=== PATIENT | female | born 1960 | race Caucasian/White ===

== ENCOUNTER → 2021-11-22 09:42 | Outpatient (BNVA) | payer BC, SELFPAY | PROVIDERS: PCP Family Medicine; Visit Provider Psychiatry & Neurology Neurology ==

== ENCOUNTER 2022-06-11 15:10 | Outpatient (REF) | payer BC, SELFPAY ==
[2022-06-11 15:30] LABS: MANUAL DIFF FLAG NO
[2022-06-11 15:58] LABS: Basophils Percent Auto 0.6 % (0-2); Eosinophils Absolute Auto 0.1 X10*3/uL (0.0-0.4); Eosinophils Percent Auto 1.7 % (0-4); Hematocrit 44.8 % (37.0-47.0); Hemoglobin 15.2 g/dl (12.0-16.0); Imm Gran Abs Auto 0.01 X10*3/uL (0.00-0.03); Imm Gran Pct Auto 0.2 % (0.0-0.4); Lymphocytes Percent Auto 45.3 % (20-40); Mean Corpuscular HGB Conc 33.9 g/dl (31.0-35.0); Mean Corpuscular Hemoglobin 31.7 pg (27.0-33.0); Mean Corpuscular Volume 93.5 fL (80.0-98.0); Mean Platelet Volume 9.3 fL (9.4-12.3); Monocytes Absolute Auto 0.5 X10*3/uL (0.1-1.2); Monocytes Percent Auto 7.1 % (2-11); Neutrophils Percent Auto 45.1 % (45-73); Platelet Count 216 X10*3/uL (160-400); Red Blood Count 4.79 X10*6/uL (4.20-5.50); Red Cell Distribution Width 13.1 % (11.0-16.0); White Blood Count 6.6 X10*3/uL (4.8-10.8)
[2022-06-11 16:25] LABS: Alanine Aminotransferase 26 U/L (0-31); Albumin Level 4.4 g/dL (3.5-5.0); Alkaline Phosphatase 116 U/L (39-117); Anion Gap 15 (12-20); Aspartate Amino Transferase 21 U/L (5-31); Bilirubin Direct 0.2 mg/dL (0.0-0.5); Bilirubin Total 0.4 mg/dL (0.0-1.0); Blood Urea Nitrogen 19 mg/dL (9-16); Calcium 9.5 mg/dL (8.4-10.2); Carbon Dioxide 22 mmol/L (22-29); Chloride 107 mmol/L (96-108); Estimated Glomerular Filt Rate 54; Glucose Random 105 mg/dL (60-115); Potassium 4.5 mmol/L (3.3-5.1); Sodium 139 mmol/L (135-145); Total Protein 7.1 g/dL (6.5-8.0)
[2022-06-11 16:55] LABS: Folate 6.4 ng/mL (> or = 4.0); Vitamin B12 240 pg/mL (200-900)
== END 2022-06-11 15:11 | disposition home or self-care (01) ==
LOC: HO.LAB 15:10
PROVIDERS: PCP Family Medicine; Visit Provider Psychiatry & Neurology Neurology
DX: F09 Unspecified mental disorder due to known physiological condition (principal); G40.909 Epilepsy, unspecified, not intractable, without status epilepticus; G43.909 Migraine, unspecified, not intractable, without status migrainosus; Q85.1 Tuberous sclerosis; R42 Dizziness and giddiness; E03.9 Hypothyroidism, unspecified
CPT/HCPCS: 36415; 80048; 80076; 82306; 82607; 82746; 84443; 85025

== ENCOUNTER → 2022-09-19 09:00 | Outpatient (BNVA) | payer MEDICAID, SELFPAY | PROVIDERS: PCP Family Medicine; Visit Provider Psychiatry & Neurology Neurology | DX: G43.909 Migraine, unspecified, not intractable, without status migrainosus (principal); G40.909 Epilepsy, unspecified, not intractable, without status epilepticus; R42 Dizziness and giddiness; Q85.1 Tuberous sclerosis; Z79.899 Other long term (current) drug therapy | CPT/HCPCS: 99212 ==

== ENCOUNTER → 2023-03-20 15:17 | Outpatient (BNVA) | payer OTHER, SELFPAY | PROVIDERS: PCP Family Medicine; Visit Provider Nurse Practitioner Family | DX: G40.909 Epilepsy, unspecified, not intractable, without status epilepticus (principal); G43.909 Migraine, unspecified, not intractable, without status migrainosus; R42 Dizziness and giddiness; Q85.1 Tuberous sclerosis | CPT/HCPCS: 99212 ==

== ENCOUNTER 2023-05-27 13:29 | Outpatient (AMB) | payer OTHER, SELFPAY ==
--- NOTE | 2023-05-27 13:35 | MHC.OFFVIS ---
Intake Vital Signs 05/27/23 13:37 Weight 244 lb 2 oz BP 130/76 Blood Pressure Location Lt brachial Position Sitting Pulse Source Pulse Oximeter Pulse Oximetry (%) 96 Oxygen Delivery Method Room Air Intake Visit Reasons: FOLLOW UP-confirmed Intake Note: Pt presents today in fup , states her seizures are more under control. Pt states meds make her sleepy and she takes naps qd . Migraines are an issue, happens alot . Pt had a vertgo episode on 05/10 Allergies clotrimazole Allergy (Unknown, Verified 05/27/23 13:41) Unknown nystatin Allergy (Unknown, Verified 05/27/23 13:41) Unknown beclomethasone [From Qvar] Allergy (Verified 05/27/23 13:41) Headache flovent Allergy (Unknown, Uncoded 09/19/22 09:06) Unknown percocet Allergy (Unknown, Uncoded 09/19/22 09:06) Unknown Medication List - Last Reconciled 05/27/23 by Radha Ware MD acetaminophen (Pain Relief Extra Strength (acetaminophen)) 500 mg PO Q6H PRN albuterol sulfate mg inhalation Q4H PRN ascorbate calcium (vitamin C) 1 g PO Q6H atorvastatin 20 mg PO DAILY qeffxkxrob-glnbnmntnvjuv-qckg 50-325-40 mg 0 tabs PO cholecalciferol (vitamin D3) 50 mcg PO DAILY clonazepam 0.5 mg PO BEDTIME 30 days diphenhydramine HCl (Banophen) 25 mg PO BEDTIME docusate sodium 100 mg PO BID fluocinolone 0.025% appl topical BID galcanezumab-gnlm (Emgality Pen) 120 mg subcut .q monthly lamotrigine 150 PO 5 tabsa day; lorazepam 0.5 mg PO TID PRN meclizine 12.5 mg PO DIRECTED methocarbamol 500 mg PO BEDTIME omeprazole 20 mg PO DAILY oxcarbazepine 300 mg PO QID prazosin 1 mg PO BEDTIME scopolamine base 1 patch topical Q3D PRN topiramate 600 mg (6 x 100 mg) PO .qd HPI HPI Comments History of Present Illness Details 62 y/o female presents for follow up of migraines, epilepsy, vertigo and anxiety. She has been taking Ativan 0.5 mg bid to tid as needed she started with anew therapist for her mood. she takes 30 min nap in the afternoon Seizures are well controlled. No side effects from medications Migraines are less frequent with monthly Emgality. she is due for emgality today and has been having more migraines recently . She lost her clonazepam ( she had people cleaning her house and not sure how she lost it) she ran out of clonazepam 2 weeks ago and since then her migraines have increased .she is unable to sleep.she was started on prazosin 1mg but she is not tolerating. Pt usually takes a nap, takes ativan, uses ice pack to manage her migraine. Vertigo was stable after rehab. she ahd 1 episode last month but she was under a lot stress- she took meclizine and lorazepam which resolved. She is more careful to change her position and sleeps on her left side, it helped to recurrent vertigo. [facility] Medical History Anxiety Cognitive disorder Epilepsy Migraine Thyroid activity decreased Tuberous sclerosis Vertigo Surgical History History of back surgery History of surgery Hx of appendectomy Hx of cataract surgery Family History Father Heart disease Diabetes mellitus Mother Tuberous sclerosis Social History Household Members: Family Alcohol intake: former Patient Tobacco Use Status: Former Tobacco user Physical Exam Vital Signs: Last Vital Signs BP 130/76 05/27/23 13:37 Pulse Ox 96 05/27/23 13:37 Oxygen Delivery Method Room Air 05/27/23 13:37 Const General: cooperative, healthy appearing, comfortable and no acute distress Nutritional Appearance: average body habitus Orientation/consciousness: patient oriented x3 Neuro General: patient oriented x3 and moves all extremities Assessment & Plan Assessment & Plan (1) Epilepsy: Code(s): G40.909 - Epilepsy, unspecified, not intractable, without status epilepticus (2) Migraine: Code(s): G43.909 - Migraine, unspecified, not intractable, without status migrainosus (3) Vertigo: Code(s): R42 - Dizziness and giddiness (4) 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 Lorazepam 0.5mg tid as needed. She may use clonazepam 0.5 mg qHS for anxiety. Emgality 120mg monthly as patient has good clinical effect to reduce migraine frequency and intensity. She may use Tylenol and Imitrex 100mg as needed. Orders: Orders Complete Blood Count Auto Diff Today G40.909 - Epilepsy, unspecified, not intractable, without status epilepticus, G43.909 - Migraine, unspecified, not intractable, without status migrainosus, Q85.1 - Tuberous sclerosis, R42 - Dizziness and giddiness Comprehensive Met. Panel Today G40.909 - Epilepsy, unspecified, not intractable, without status epilepticus, G43.909 - Migraine, unspecified, not intractable, without status migrainosus, Q85.1 - Tuberous sclerosis, R42 - Dizziness and giddiness Medications: Refilled clonazepam administer 30 minutes before bedtime 0.5 mg PO BEDTIME 30 days 30 tabs 0RF galcanezumab-gnlm (Emgality Pen) 120 mg subcut .q monthly 1 mL 6RF Coding Level of Care Code Est Pt Level 4 (25402) Diagnoses Epilepsy G40.909 Migraine G43.909 Vertigo R42 Tuberous sclerosis Q85.1
[2023-05-27 13:37] VITALS: BP 130/76; O2SAT 96
== END 2023-05-27 14:13 | disposition home or self-care (01) ==
PROVIDERS: PCP Family Medicine; Visit Provider Psychiatry & Neurology Neurology
DX: G40.909 Epilepsy, unspecified, not intractable, without status epilepticus (principal); G43.909 Migraine, unspecified, not intractable, without status migrainosus; R42 Dizziness and giddiness; Q85.1 Tuberous sclerosis
CPT/HCPCS: 99214

== ENCOUNTER → 2023-05-27 13:29 | Outpatient (BNVA) | payer OTHER, SELFPAY | PROVIDERS: PCP Family Medicine; Visit Provider Psychiatry & Neurology Neurology ==

== ENCOUNTER 2023-09-19 08:58 | Outpatient (AMB) | payer OTHER, SELFPAY ==
--- NOTE | 2023-09-19 09:07 | A.OFFVIS_ITS ---
Intake Vital Signs 09/19/23 09:12 Height 5 ft 10 in Weight 242 lb BMI 34.7 BP 138/96 H Blood Pressure Location Rt brachial Position Sitting Respiration 16 Pulse 72 Pulse Source Pulse Oximeter Pulse Oximetry (%) 97 Oxygen Delivery Method Room Air Intake Visit Reasons: FOLLOW UP - Conf at CW Intake Note: Pt presents to office for follow up for epilepsy. Air Brake Rigger Required: No Allergies clotrimazole Allergy (Unknown, Verified 09/19/23 09:10) Unknown nystatin Allergy (Unknown, Verified 09/19/23 09:10) Unknown beclomethasone [From Qvar] Allergy (Verified 09/19/23 09:10) Headache flovent Allergy (Unknown, Uncoded 09/19/23 09:10) Unknown percocet Allergy (Unknown, Uncoded 09/19/23 09:10) Unknown HPI HPI Comments History of Present Illness Details 62 y/o female presents for follow up of migraines, epilepsy, vertigo and anxiety. She has been taking Ativan 0.5 mg bid to tid as needed she has clonazepam 0.5 mg 1/2 tab qod she talks a therapist every other week she takes 30 min nap in the afternoon Seizures are well controlled. No side effects from medications Migraines are less frequent with monthly Emgality. Pt usually takes a nap, takes ativan, uses ice pack to manage her migraine. Vertigo was stable after rehab. she had 1 episode last month but she was under a lot stress- she took meclizine and lorazepam which resolved. She is more careful to change her position and sleeps on her left side, it helped to recurrent vertigo. she had fall when she rolled out of bed. no loss of consciousness.SHe had headaches for a few days and is better now. [facility] Medical History Thyroid activity decreased Cognitive disorder Anxiety Vertigo Migraine Epilepsy Tuberous sclerosis Surgical History Hx of cataract surgery History of surgery Hx of appendectomy History of back surgery Family History Father Heart disease Diabetes mellitus Mother Tuberous sclerosis Social History Household Members: Family Alcohol intake: former Patient Tobacco Use Status: Former Tobacco user Physical Exam Vital Signs: Last Vital Signs Pulse 72 09/19/23 09:12 Resp 16 09/19/23 09:12 BP 138/96 H 09/19/23 09:12 Pulse Ox 97 09/19/23 09:12 Oxygen Delivery Method Room Air 09/19/23 09:12 BMI result Body Mass Index 34.7 Const General: cooperative, healthy appearing, comfortable and no acute distress Nutritional Appearance: average body habitus Orientation/consciousness: patient oriented x3 Neuro General: patient oriented x3 and moves all extremities Cranial nerves: Yes Facial sensation intact/muscles of mastication intact, Yes Bilaterally intact EOM present, Yes Nystagmus not present, Yes Normal facial strength present, Yes Midline tongue present and Yes Symmetric palate elevation present Cognition (Neuro): normal cognition Gait exam (Neuro): Normal gait present Assessment & Plan Assessment & Plan (1) Epilepsy: Code(s): G40.909 - Epilepsy, unspecified, not intractable, without status epilepticus (2) Migraine: Code(s): G43.909 - Migraine, unspecified, not intractable, without status migrainosus (3) Vertigo: Code(s): R42 - Dizziness and giddiness (4) 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 Lorazepam 0.5mg tid as needed. She may use clonazepam 0.5 mg qHS for anxiety. Emgality 120mg monthly as patient has good clinical effect to reduce migraine frequency and intensity. She may use Tylenol and Imitrex 100mg as needed. Coding Level of Care Code Est Pt Level 4 (60551) Diagnoses Epilepsy G40.909 Migraine G43.909 Vertigo R42 Tuberous sclerosis Q85.1
[2023-09-19 09:12] VITALS: BP 138/96; PULSE 72; RESP 16; O2SAT 97; BMI 34.7
== END 2023-09-19 09:46 | disposition home or self-care (01) ==
PROVIDERS: PCP Family Medicine; Visit Provider Psychiatry & Neurology Neurology
DX: G40.909 Epilepsy, unspecified, not intractable, without status epilepticus (principal); G43.909 Migraine, unspecified, not intractable, without status migrainosus; R42 Dizziness and giddiness; Q85.1 Tuberous sclerosis
CPT/HCPCS: 99214

== ENCOUNTER → 2023-09-19 08:58 | Outpatient (BNVA) | payer OTHER, SELFPAY | PROVIDERS: PCP Family Medicine; Visit Provider Psychiatry & Neurology Neurology | DX: G43.909 Migraine, unspecified, not intractable, without status migrainosus (principal); G40.909 Epilepsy, unspecified, not intractable, without status epilepticus; Q85.1 Tuberous sclerosis; R42 Dizziness and giddiness ==

== ENCOUNTER 2024-01-21 10:10 | Outpatient (AMB) | payer OTHER, SELFPAY ==
--- NOTE | 2024-01-21 10:16 | MHC.OFFVIS ---
Intake Vital Signs 01/21/24 10:17 Height 5 ft 10 in Weight 240 lb BMI 34.4 BP 128/76 Blood Pressure Location Rt brachial Position Sitting Respiration 16 Pulse 85 Pulse Source Pulse Oximeter Pulse Oximetry (%) 96 Oxygen Delivery Method Room Air Intake Visit Reasons: Follow up-CONF Intake Note: Pt presents to the office for a 4 month follow up for epilepsy. Blowing Engineer Required: No Allergies clotrimazole Allergy (Unknown, Verified 01/21/24 10:16) Unknown nystatin Allergy (Unknown, Verified 01/21/24 10:16) Unknown beclomethasone [From Qvar] Allergy (Verified 01/21/24 10:16) Headache flovent Allergy (Unknown, Uncoded 01/21/24 10:16) Unknown percocet Allergy (Unknown, Uncoded 01/21/24 10:16) Unknown Medication List - Last Reconciled 01/21/24 by Radha Ware MD acetaminophen (Pain Relief Extra Strength (acetaminophen)) 500 mg PO Q6H PRN albuterol sulfate mg inhalation Q4H PRN ascorbate calcium (vitamin C) 1 g PO Q6H atorvastatin 20 mg PO DAILY xwqsmfjwsq-wutdcxfkihomi-vzib 50-325-40 mg 0 tabs PO cholecalciferol (vitamin D3) 50 mcg PO DAILY clonazepam 0.5 mg PO BEDTIME 30 days dextromethorphan polistirex ER (Delsym 12 hour) 10 mL PO Q12H jmlemhgdh-N[place]-mhhbwzfywbwar 12.5-5-325 mg/10 mL (Child Mucinex M-S Cold Night) mL PO diphenhydramine HCl (Banophen) 25 mg PO BEDTIME docusate sodium 100 mg PO BID fluocinolone 0.025% appl topical BID galcanezumab-gnlm (Emgality Pen) 120 mg subcut ONCE 30 days lamotrigine 150 PO 5 tabsa day; lorazepam 0.5 mg PO TID PRN meclizine 12.5 mg PO DIRECTED methocarbamol 500 mg PO BEDTIME mometasone-formoterol 50-5 mcg/actuation (Dulera) 2 inhalations inhalation BID omeprazole 20 mg PO DAILY oxcarbazepine 300 mg PO QID prazosin 1 mg PO BEDTIME scopolamine base 1 patch topical Q3D PRN topiramate 600 mg (6 x 100 mg) PO .qd HPI HPI Comments History of Present Illness Details 63 y/o female presents for follow up of migraines, epilepsy, vertigo and anxiety. She has been taking Ativan 0.5 mg bid to tid as needed she has clonazepam 0.5 mg 1/2 tab qod she talks a therapist every other week she takes 30 min nap in the afternoon Seizures are well controlled. No side effects from medications Migraines are less frequent with monthly Emgality. she has 2 migraine days before her emgality dose. Pt usually takes a nap, takes ativan, uses ice pack to manage her migraine. Vertigo was stable after rehab. she had 1 episode this week . She is more careful to change her position and sleeps on her left side, it helped to recurrent vertigo. she takes meclizine as needed. Her anxiety is worse due to stress. [facility] Medical History Thyroid activity decreased Cognitive disorder Anxiety Vertigo Migraine Epilepsy Tuberous sclerosis Surgical History Hx of cataract surgery History of surgery Hx of appendectomy History of back surgery Family History Father Heart disease Diabetes mellitus Mother Tuberous sclerosis Social History Household Members: Family Alcohol intake: former Patient Tobacco Use Status: Former Tobacco user Physical Exam Vital Signs: Last Vital Signs Pulse 85 01/21/24 10:17 Resp 16 01/21/24 10:17 BP 128/76 01/21/24 10:17 Pulse Ox 96 01/21/24 10:17 Oxygen Delivery Method Room Air 01/21/24 10:17 BMI result Body Mass Index 34.4 Const General: cooperative, healthy appearing, comfortable and no acute distress Nutritional Appearance: average body habitus Orientation/consciousness: patient oriented x3 Neuro General: patient oriented x3 and moves all extremities Cranial nerves: Yes Facial sensation intact/muscles of mastication intact, Yes Bilaterally intact EOM present, Yes Nystagmus not present, Yes Normal facial strength present, Yes Midline tongue present and Yes Symmetric palate elevation present Cognition (Neuro): normal cognition Gait exam (Neuro): Normal gait present Assessment & Plan Assessment & Plan (1) Epilepsy: Code(s): G40.909 - Epilepsy, unspecified, not intractable, without status epilepticus (2) Migraine: Code(s): G43.909 - Migraine, unspecified, not intractable, without status migrainosus (3) Vertigo: Code(s): R42 - Dizziness and giddiness (4) 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 Lorazepam 0.5mg tid as needed. She may use clonazepam 0.5 mg qHS for anxiety. Emgality 120mg monthly as patient has good clinical effect to reduce migraine frequency and intensity. She may use Tylenol and Imitrex 100mg as needed. Coding Level of Care Code Est Pt Level 4 (43596) Diagnoses Epilepsy G40.909 Migraine G43.909 Vertigo R42 Tuberous sclerosis Q85.1
[2024-01-21 10:17] VITALS: BP 128/76; PULSE 85; RESP 16; O2SAT 96; BMI 34.4
== END 2024-01-21 10:45 | disposition home or self-care (01) ==
PROVIDERS: PCP Family Medicine; Visit Provider Psychiatry & Neurology Neurology
DX: G40.909 Epilepsy, unspecified, not intractable, without status epilepticus (principal); G43.909 Migraine, unspecified, not intractable, without status migrainosus; R42 Dizziness and giddiness; Q85.1 Tuberous sclerosis
CPT/HCPCS: 99214

== ENCOUNTER → 2024-01-21 10:10 | Outpatient (BNVA) | payer OTHER, SELFPAY | PROVIDERS: PCP Family Medicine; Visit Provider Psychiatry & Neurology Neurology ==

== ENCOUNTER 2024-07-19 10:49 | Outpatient (REF) | payer OTHER, SELFPAY ==
[2024-07-19 13:22] LABS: MANUAL DIFF FLAG NO
[2024-07-19 13:27] LABS: Basophils Absolute Auto 0.1 X10*3/uL (0.0-0.2); Basophils Percent Auto 0.7 % (0-2); Eosinophils Absolute Auto 0.1 X10*3/uL (0.0-0.4); Eosinophils Percent Auto 1.2 % (0-4); Hematocrit 47.4 % (37.0-47.0); Hemoglobin 15.7 g/dl (12.0-16.0); Imm Gran Abs Auto 0.02 X10*3/uL (0.00-0.03); Imm Gran Pct Auto 0.3 % (0.0-0.4); Lymphocytes Absolute Auto 2.6 X10*3/uL (1.2-4.9); Mean Corpuscular HGB Conc 33.1 g/dl (31.0-35.0); Mean Corpuscular Hemoglobin 31.8 pg (27.0-33.0); Mean Corpuscular Volume 96.1 fL (80.0-98.0); Monocytes Absolute Auto 0.4 X10*3/uL (0.1-1.2); Monocytes Percent Auto 5.8 % (2-11); Neutrophils Absolute Auto 3.8 x10*3/uL (2.0-8.3); Platelet Count 231 X10*3/uL (160-400); Red Blood Count 4.93 X10*6/uL (4.20-5.50); Red Cell Distribution Width 13.1 % (11.0-16.0)
[2024-07-19 13:56] LABS: Alanine Aminotransferase 21 U/L (0-31); Albumin Level 4.2 g/dL (3.5-5.0); Alkaline Phosphatase 96 U/L (39-117); Anion Gap 7 (12-20); Aspartate Amino Transferase 19 U/L (5-31); Bilirubin Total 0.3 mg/dL (0.0-1.0); Blood Urea Nitrogen 22 mg/dL (9-16); Calcium 10.3 mg/dL (8.4-10.2); Carbon Dioxide 27 mmol/L (22-29); Chloride 112 mmol/L (96-108); Estimated Glomerular Filt Rate 47; Glucose Random 101 mg/dL (60-115); Potassium 4.7 mmol/L (3.3-5.1); Sodium 141 mmol/L (135-145); Total Protein 7.2 g/dL (6.5-8.0)
[2024-07-19 14:24] LABS: Vitamin B12 832 pg/mL (200-900)
[2024-07-19 14:50] LABS: Folate 4.2 ng/mL (> or = 4.0)
== END 2024-07-19 10:50 | disposition home or self-care (01) ==
LOC: HO.10HDL 10:49
PROVIDERS: Visit Provider Psychiatry & Neurology Neurology
DX: F09 Unspecified mental disorder due to known physiological condition (principal); Q85.1 Tuberous sclerosis; G40.909 Epilepsy, unspecified, not intractable, without status epilepticus
CPT/HCPCS: 36415; 80053; 82607; 82746; 85025

== ENCOUNTER 2024-07-22 09:49 | Outpatient (AMB) | payer OTHER, SELFPAY ==
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
[2024-07-22 09:53] VITALS: BP 122/80; PULSE 79; O2SAT 95; BMI 34.2
== END 2024-07-22 10:29 | disposition home or self-care (01) ==
PROVIDERS: PCP Family Medicine; Visit Provider Psychiatry & Neurology Neurology
DX: G40.409 Other generalized epilepsy and epileptic syndromes, not intractable, without status epilepticus (principal); G43.909 Migraine, unspecified, not intractable, without status migrainosus; R42 Dizziness and giddiness; Q85.1 Tuberous sclerosis
CPT/HCPCS: 99214; G2211

== ENCOUNTER → 2024-07-22 09:49 | Outpatient (BNVA) | payer OTHER, SELFPAY | PROVIDERS: PCP Family Medicine; Visit Provider Psychiatry & Neurology Neurology ==

== ENCOUNTER 2025-06-01 07:42 | Outpatient (AMB) | payer MEDICAID, SELFPAY ==
--- OUTSIDE RECORDS SUMMARY | 2025-06-01 07:45 | XMS_ITS ---
Author Name [facility] Organization Unknown Care Team Organization Name Specialty Phone Email Start Date End Da tucker [facility] 08/20/2022 4
--- OUTSIDE RECORDS SUMMARY | 2025-06-01 07:45 | XMS_ITS | Encounter Summary ---
Author Organization [facility] Address [address] [facility] [address] [place] [phone] Phone Care Team Providers Care Civil Preparedness Coordinator Name Role Phone Cady Jamison MD Primary Care Provider [phone] Encounter Details Date Type Department Care Team (Late st Contact Info) Description 01/20/2025 Ophth Exam [facility] Emergency Department [address] [place] [address] Isiah Saleh MD, PhD [address] [place] [address] [email or web address] Social History Tobacco Use Types Packs/Day Years Used Date Smoking Tobacco: Former Cigarettes Q uit: 10/13/1989 Smokeless Tobacco: Never Comments:Stopped smoking whe n I was 26 Alcohol Use Standard Drinks/Week Comments No 0 (1 standard drink = 0.6 oz pur e alcohol) Child or Family Care Answer Date Record ed Do you have problems with on e of the following making it difficult for you to work, study, or receive health care? No 03/15/2024 Education Answer Date Recorded Are you interested in help w ith more adult education (for example, completing high school, GED, job training, learning the Romansh language, technical skills, or developing parenting skills)? No 03/15/2024 Are you concerned about learning? Not on file 03/15/2024 No 03/15/2024 Yes 03/15/2024 Food Answer Date Recorded Within the past 6 months we worried whether our food would run out before we got money to buy more. Never True 01/20/2025 Within the past 6 months the food we bought just didn't last and we didn't have enough money to get more. Never True Residential Stability Answer Date Recor ded What is your housing situation today? I have katie sing 01/20/2025 How many times have you move d in the past 12 months? Zero (I did not move) 01/20/2025 Paying for Meds Answer Date Recorded Do you have trouble paying for medicines? No 01/20/2025 Paying Utility Bills Answer Date Record ed Do you have trouble paying your heating or elect ricity bill? No 01/20/2025 Transportation Answer Date Recorded Has the lack of transportati on kept you from medical appointments or from getting medications? No 01/20/2025 Unemployment Answer Date Recorded Are you currently unemployed or working on a part-time or temporary basis, and looking for work? I choose not to answer 01/06/2023 Digital Access Answer Date Recorded No 01/20/2025 Yes 01/20/2025 Do you have reliable internet access at home? Ye s 01/20/2025 Do you have a device (e.g., phone, tablet, computer) with a working camera? Yes 01/20/2025 SNAP & WIC Answer Date Recorded Do you receive benefits from SNAP (the Supplemental Nutrition Assistance Program) or the Food Stamp Program? Yes 03/15/2024 SNAP is a free program, interested in learning m ore? Not on file 03/15/2024 Can we help you enroll in SNAP? Not on file 03/15/2024 Benefits received from WIC? Not on file 12/2023 WIC is a free program, interested in learning mo re? Not on file 03/15/2024 Can we help you enroll in WIC? Not on file 0 03/15/2024 Intimate Partner Violence Answer Date R ecorded Are you denied basic needs s uch as food, clothing, or medical care? No 01/20/2025 In the past 12 months have y ou been in a relationship with a person who hurts, threatens, or tries to control you? No 01/20/2025 Are you denied basic needs s uch as food, clothing, or medical care? No 01/20/2025 In the past 12 months have y ou been in a relationship with a person who hurts, threatens, or tries to control you? No 01/20/2025 Comments No Sex and Gender Information Value Date Recorded Sex Assigned at Female 04/03/2023 1:17 PM EDT Legal Sex Female 9:46 PM EDT Gender Identity Female 04/03/2023 1:17 PM EDT Sexual Orientation Straight 01/20/2025 2: 39 PM EDT Occupation Industry Job Start Date Job End Date family [employer] Not on file Not on file Not on file documented as of this encounter Functional Status * Calculated C-SSRS Risk Score (Lifetime/Recent) Answer Date of Assessment Author No Risk Indicated 01/20/2025 2:26 PM EDT Keith Morris, LOYDA * [place] Suicide Severity Rating Scale (Screener/Recent Self-Report) Question Answer Date of Assessment Author 1. Wish to be (Past 1 Month) No 025 2:26 PM EDT Keith Morris, LOYDA 2. Non-Specific Active Suici pierre Thoughts (Past 1 Month) No 01/20/2025 2:26 PM EDT Koko Morris, RN 6. Suicidal Behavior (Lifetime) No 2:26 PM EDT Keith Morris, RN documented as of this encounter Plan of Treatment Upcoming Encounters Date Type Department Care Team (Late st Contact Info) Description 06/02/2025 9:00 AM EDT Office Visit [facility] [place] [facility] [address] [place] [address] Cady Jamison MD 15 [facility] [address] [place] [address] 07/04/2025 9:00 AM EDT Nutrition [facility] Nutrition Services [address] [place] [address] Cady Jamison MD 15 [facility] [place] [address] [email or web address] Zeina Mcgovern LDN [address] [place] [phone] [email or web address] 12/22/2025 1:00 PM EDT Office Visit [facility] Medical Dermatology [address], [address] [place] [address] Juan A Hernandes MD, MPH [address] [place] [address] [email or web address] 01/17/2026 3:00 PM EDT Office Visit [facility] G[facility] Associates [address] [facility] 5th [place] [address] Edgar Arias MD [address] [address] [email or web address] 03/14/2026 2:45 PM EDT Office Visit [facility] COMPREHENSIVE OPHTHALMOLOGY [facility] [address] [place] [phone] Esdras Jurado MD [address] [place] [address] [email or web address] 03/27/2026 10:30 AM EDT Appointment [facility] Imaging - Ultrasound, [facility] [address] [place] [address] Lokesh Britton MD, FACS [address] [facility] [place] [address] [email or web address] 03/27/2026 11:30 AM EDT Office Visit [facility] Otolaryngology [facility] [address] [address] Lokesh Britton MD, FACS [address] [facility] [place] [address] [email or web address] 06/28/2026 10:00 AM EDT Office Visit [facility] [place] [facility] [address] [place] [address] Cady Jamison MD 15 [facility] [place]. [address] [place] [address] 11/15/2026 11:00 AM EST Telemedicine [facility] [address] [facility], 5th [place] [address] Gabriel Landrum, PhD [address] [place], [place] [id number] [place] [address] [email or web address] documented as of this encounter Visit Diagnoses Not on filedocumented in this encounter Additional Health Concerns Infection Onset Date Last Indicated Resolved Time COVID-19 05/07/2025 05/07/2025 05/28/2025 1:21 AM EDT Assessment Noted Time PHQ-9 Depression Total Score: 11 024 5:48 PM EST PHQ-2 Depression Total Score: 3 09/15/20 24 5:48 PM EST documented as of this encounter Care Teams Civil Preparedness Coordinator Relationship Specialty Start Date End Date Cady Jamison MD [address] [facility] [place] [address] PCP - General Family Medicine 08/26/21 documented as of this encounter Additional Source Comments The information contained in this document represents components of the legal health record. It is not the complete legal health record.[facility]
--- OUTSIDE RECORDS SUMMARY | 2025-06-01 07:45 | XMS_ITS | Clinical Summary ---
Author Organization [facility] Address [address] [place] [address] Care Team Providers Care Chip Mixing Machine Operator Name Role Phone Cady Jamison MD Primary Care Provider Allergies Active Allergy Reactions Criticality Noted Date Comments Amoxicillin 07/05/2016 Causes yeast infection Budesonide-Formoterol 03/09/2019 Throat closure feeling, swollen face and palpitations Clotrimazole Anaphylaxis High 07/15/200805/20 Codeine 12/20/2024 Fluticasone Propionate 10/02/2010 Other Reaction(s): OTHER closed the airway ? Patient points to sinus region as to where she felt congested. She then tolerated Advair House Dust 09/17/2016 Norgestimate-Ethinyl Estradiol 12/20/2024 Nystatin Anaphylaxis High 07/15/2008 Oxycodone-Acetaminophen 09/17/2016 headaches Potato 08/24/2021 Cough Prednisolone 02/02/2019 Other Reaction(s): Hives/Urticaria Spoke with patient, day 2 or 3 medication developed hive like rash which lasted a couple of days, was given with another medication at the same time. Terconazole 08/05/2019 Medications atorvastatin (LIPITOR) 20 mg tablet Take 1 tablet (20 mg total) by mouth 1 (one) time each day. 2 Active scopolamine (TRANSDERM-SCOP) 1 mg over 3 days patch [address] 1 Patch onto the skin every 72 hours as needed (dizziness/vert igo). 1 Active pramoxine-hydroc ortisone cream Apply 1 applicator topically 3 (three) times a day. 1 Active albuterol HFA (ProAir HFA) 90 mcg/actuation inhaler Inhale 2 Puffs into the lungs every 4 hours as needed for Cough or Wheezing. 0 Active galcanezumab-gnl m (Emgality Pen) 120 mg/mL injection pen Inject 1 mL (120 mg total) under the skin every 30 (thirty) days. 0 Active albuterol 2.5 mg /3 mL (0.083 %) nebulizer solution Inhale 3 mL (2.5 mg total) by mouth every 4 (four) hours if needed for wheezing. 0 Active hydrocortisone-p ramoxine (Analpram-HC) 2.5-1% rectal cream Use as directed. 9 Active EPINEPHrine (EpiPen 2-Jose) 0.3 mg/0.3 mL injection Inject 1 Device as directed as needed (anaphylaxis). Use as directed 9 Active erenumab-aooe (Aimovig Autoinjector) 70 mg/mL injection Inject under the skin. Active meclizine (ANTIVERT) 12.5 mg tablet Take 1 tablet (12.5 mg total) by mouth 3 (three) times a day if needed. 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 Active CARON, ZINGIBER OFFICINALIS, ORAL Take 1 tablet by mouth 1 (one) time each day. Active estradioL (ESTRACE) 0.01 % (0.1 mg/gram) vaginal cream One half applicator vaginally twice daily until symptoms resolve, then one half applicator to make 7 total days. Repeat as needed 8 Active ASCORBIC ACID, VITAMIN C, ORAL Take by mouth. Active benzonatate (TESSALON) 100 mg capsule Take 1 capsule (100 mg total) by mouth 3 (three) times a day if needed. Active CYANOCOBALAMIN, VITAMIN B-12, ORAL Take 1 tablet by mouth 3 (three) times a day. Active LORazepam (ATIVAN) 0.5 mg tablet Take 1 tablet (0.5 mg total) by mouth 2 (two) times a day if needed for anxiety. 6 Active diphenhydramine HCl (BENADRYL ALLERGY ORAL) Take by mouth. A ctive lamoTRIgine (LaMICtal) 150 mg tablet 1 tablet TID, 2 at bedtime Active topiramate (TOPAMAX) 100 mg tablet 1 1/2 BID 2 at dinner and 1 at HS Active OXcarbazepine (TRILEPTAL) 300 mg tablet 1 tablet 4 times a day Active loratadine (CLARITIN ORAL) 1 po prn Acti ve CHOLECALCIFEROL, VITAMIN D3, ORAL Take 1 tablet by mouth 1 (one) time each day. Active ammonium lactate (AMLACTIN) 12 % cream Apply topically 2 times daily. 5 02/09/20 26 Active methocarbamoL (ROBAXIN) 500 mg tablet Take 1 tablet (500 mg total) by mouth 3 times daily as needed. 5 Active ciclopirox (LOPROX) 0.77 % cream Apply topically daily. 5 Active sod wzkhc-saxnzn-etq eez bottle (Neilmed Sinus Rinse Complete) packet with rinse device Administer 1 packet into affected nostril(s) once daily as needed. 5 Active topiramate (TOPAMAX) 100 mg tablet Take by mouth 1 (one) time each day. 4 Active LORazepam (ATIVAN) 0.5 mg tablet Take 1 tablet (0.5 mg total) by mouth. 4 Active lamoTRIgine (LaMICtal) 150 mg tablet Take by mouth. 4 Active omeprazole OTC (PriLOSEC OTC) 20 mg EC tablet 1 tablet (20 mg total) daily. Active butalbital-aceta minophen-caffein e (FIORICET, ESGIC) 50-325-40 mg per tablet butalbital-acet aminophen-caffe ine 50 mg-325 mg-40 mg tablet Active clotrimazole-bet amethasone (LOTRISONE) 1-0.05 % cream Apply topically 2 (two) times a day. Active galcanezumab-gnl m (Emgality Syringe) 120 mg/mL syringe Inject under the skin. Active ibuprofen (ADVIL,MOTRIN) 600 mg tablet Take by mouth. A ctive sulfamethoxazole -trimethoprim (BACTRIM DS,SEPTRA DS) 800-160 mg per tablet Take 1 tablet by mouth 2 (two) times a day. Active multivitamin tablet Take 1 tablet by mouth 1 (one) time each day. Active metroNIDAZOLE (NORITRATE) 1 % cream Apply topically 1 (one) time each day. Active diclofenac (VOLTAREN) 75 mg EC tablet Take 1 tablet (75 mg total) by mouth 2 (two) times a day. Do not crush, chew, or split. Active atorvastatin (LIPITOR) 20 mg tablet Take 1 tablet (20 mg total) by mouth at bedtime. Active ondansetron (ZOFRAN) 4 mg tablet Take 1 tablet (4 mg total) by mouth every 8 (eight) hours if needed for nausea or vomiting. Active omeprazole (PriLOSEC) [address] capsuleIndicatio ns:Chronic cough,Gastroesop hageal reflux disease with esophagitis without hemorrhage Take 1 capsule (20 mg total) by mouth 2 (two) times a day. 180 each 3 5 03/23/20 26 Active Active Problems Problem Noted Date Diagnosed Date Irritable bowel syndrome with constipation 03/23 Hoarseness 05/25/2019 Perennial allergic rhinitis 05/25/2019 Vertigo 08/04/2018 Chronic kidney disease, stage 3 ([facility] V24, [facility] V28) 10/23/2016 Cataract 09/10/2016 Prediabetes 09/10/2016 Hyperlipidemia 08/07/2014 Multinodular goiter 08/05/2013 Overview (11/24/2024): FNA Benign 08/25 Obesity 12/02/2011 Seizure ([facility] V24, [facility] V28) 07/16/2011 Anemia 07/03/2011 Asthma 09/28/2010 Fracture of left ankle 08/09/2010 Overview (11/24/2024): 05/22 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 [place] [address] Juan Antonio Vargas PA Chronic cough (Primary Dx); Gastroesophageal reflux disease with esophagitis without hemorrhage; Hyperplastic polyp of stomach from Last 3 Months Immunizations Name Administration Dates Next Due Influenza trivalent, with pr eservative (Fluzone; Afluria) 6mo and older 07/26/2015,07/19/2014 Pneumococcal polysaccharide 23 valent (Pneumovax 23) 2yo and older 07/19/2014 Tdap Tetanus diptheria acell ular pertussis (Boostrix; Adacel) 7yo and older 07/26/2015 Zoster Live 11/23/2017 Surgical History Surgery Date Site/Laterality Comments OTHER SURGICAL HISTORY 08/13/2006 PROCEDURE: PAP SMEAR (1 SLIDE); COMMENT: Cy; clayton COLONOSCOPY 02/06/2010 PROCEDURE: [place] COLONOSCOPY STOMA DX INCLUDING COLLJ SPEC SPX; COMMENT: Gianfranco; neg; R 10 Y ESOPHAGOGASTRODUODENOSCOPY 07/20/2010 PROCEDURE: [place] EGD TRANSORAL BIOPSY SINGLE/MULTIPLE; COMMENT: Gianfranco; esophagitis, no celiac OTHER SURGICAL HISTORY 05/04/2021 N/A PROCEDURE: [place] ENTEROLSS FRING INTSTINAL ADHESION SPX OTHER SURGICAL HISTORY 05/04/2021 PROCEDURE: [place] LAPAROSCOPIC APPENDECTOMY COLONOSCOPY 04/12/2020 - 05/12/2020 int rhoids (10 yr) ESOPHAGOGASTRODUODENOSCOPY 10/13/2024 - 11/12/2024 [facility] -2 superficial esophageal ulcers at GE junction, 11 mm sessile polyp in gastric fundus biopsied, patchy inflammation in gastric antrum, erythematous duodenopathy Medical History Medical History Date Comments 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, [facility]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); COMMENT: Jeanie; Seizures Fracture of left ankle 08/09/2010 DX:Fractu re of left ankle Asthma 09/28/2010 DX:Asthma Anemia 07/03/2011 DX:Anemia Seizure ([facility]24, [facility] V28) 07/16/2011 DX:Seizure ([facility]) Obesity 12/02/2011 DX:Obesity Chronic kidney disease, stag e 3 ([facility], [facility] V28) 10/23/2016 DX:Chronic kidney disease, stage 3 (HCC) Family History Medical History Relation Name Comments Other: Cancer, stomach Aunt 1 mat; Gr A Anemia Aunt 2 mat Diabetes Father Heart attack Father Heart failure Father Heart failure Paternal Grandfather Thyroid disease Paternal Grandmother Goit er Other cancer Sister Rhabdomyosarcom a Relation Name Status Comments Aunt 1 Aunt 2 Father Paternal Grandfather Paternal Grandmother Sister Social History Tobacco Use Types Packs/Day Years Used Date Smoking Tobacco: Former Cigarettes Q uit: 10/13/1988 Smokeless Tobacco: Never Alcohol Use Standard Drinks/Week Comments No 0 (1 standard drink = 0.6 oz pur e alcohol) Comments Unknown Sex and Gender Information Value Date Recorded Sex Assigned at Female 06/13/2022 9:18 AM EDT Legal Sex Female 8:51 AM EDT Gender Identity Female 06/13/2022 9:18 AM EDT Sexual Orientation Straight 06/13/2022 9: 18 AM EDT Obstetrics History Last Filed Vital Signs Vital Sign Reading Time Taken Comments Blood Pressure - - Pulse - - Temperature - - Respiratory Rate - - Oxygen Saturation - - Inhaled Oxygen Concentration - - Weight 111 kg (244 lb) 03/23/2025 12:56 PM EDT Height 175.3 cm (5' 9 ) 03/23/2025 12:56 PM EDT Body Mass Index 36.03 03/23/2025 12:56 PM EDT Plan of Treatment Upcoming Encounters Date Type Department Care Team (Late st Contact Info) Description 09/22/2025 1:00 PM EST Office Visit Gastroenterology - [address] [place] [id number] Juan Antonio Vargas PA [address] [place] [address] Health Maintenance Due Date Last Done Comments Zoster Vaccines (1 of 2) 01/18/2018 11/23/2017 HIV Screening 06/13/2022 Hepatitis C Screening 06/13/2022 Social Influencers of Health Screening 06/13/2022 Cervical Cancer Screening: Pap Smear 06/25/2024 06/25/2021 Depression Screening 10/13/2024 COVID-19 Vaccine (5 - Moderna risk season) 2024 06/06/2024, 04/05/2022, 03/05/2021, Additional history exists Influenza Vaccine (#1) 2025 , 07/26/2015, 07/19/2014 Breast Cancer Screening 12/22/2025 12/23/19, 11/21/2022, 10/03/2021, Additional history exists Cholesterol Screening (Lipid Panel) 03/14/2030 03/14/2025, 03/25/2024, 08/01/2020 Colorectal Cancer Screening: Colonoscopy 12/24/2034 12/24/2024, 02/06/2010 DTaP,Tdap,and Td Vaccines (3 - Td or Tdap) 03/21/2035 03/21/2025, 07/26/2015 RSV Immunization Adult Patients Completed 08/11/2024 MMR Vaccines Aged Out 03/21/2025 No longer eligi ble based on patient's age to complete this topic Pneumococcal Vaccine: 50+ Years Completed 03/21/2025, 07/19/2014 HIB Vaccines Aged Out No longer eligi ble based on patient's age to complete this topic HPV Vaccines Aged Out No longer eligi ble based on patient's age to complete this topic Hepatitis A Vaccines Aged Out No long er eligible based on patient's age to complete this topic Hepatitis B Vaccines Aged Out No long er eligible based on patient's age to complete this topic IPV Vaccines Aged Out No longer eligi ble based on patient's age to complete this topic Meningococcal ACWY Vaccine Aged Out N o longer eligible based on patient's age to complete this topic Meningococcal B Vaccine Aged Out No l onger eligible based on patient's age to complete this topic RSV Immunization Patients Under 20 months Aged Out No longer eligible based on patient's age to complete this topic Varicella Vaccines Aged Out No longer eligible based on patient's age to complete this topic Procedures Procedure Name Priority Date/Time Associated Diagnosis Comments EXTERNAL COLONOSCOPY REPORT Routine 12/24/2024 9:02 AM EDT CANDACE SCREENING DIGITAL Routine 11/21/2022 9:17 AM EST Encounter for screening mammogram for malignant neoplasm of breast HM PAP SMEAR Routine 06/25/2021 LIPID PANEL Routine 08/01/2020 from Last 3 Months or Most Recently Relevant to Health Maintenance Results * External Colonoscopy Report (12/24/2024 9:02 AM EDT) Anatomical Region Laterality Modality Endoscopy us Historical Provider MD JULES~PROCEDURE ORDERABLES F inal Result * CANDACE SCREENING DIGITAL (11/21/2022 9:17 AM EST) Anatomical Region Laterality Modality Mammography 11/21/2022 8:07 AM EST Narrative 11/21/2022 9:17 AM EST [facility] Diagnostic Imaging Department [address] [place] [address] Patient: ASHLEE YUN./Age/Sex: 1960 - 61 - F Unit#: [id number] Location/Status: SPDIMAM/REG CLI Mnemonic/Ordering Site: [facility] Ordering Physician: FIDELINA AMRQUEZ MD Candace Screening Digital - 11/21/22822 EXAM: [facility] Screening Digital EXAM DATE AND TIME: 11/21/2022 8:23 AM HISTORY: Screening. Maternal cousin had breast carcinoma. COMPARISON: 10/01/21, 09/30/20, 07/10/19 TECHNIQUE: CC and MLO views of both breasts were obtained using full field digital mammography. Bilateral digital breast tomosynthesis was performed in the MLO projection. Computer aided detection with [employer] 7.2-H and [employer] 3D 3.1 was employed. TISSUE DENSITY: a. The breasts are almost entirely fatty. FINDINGS: No suspicious masses, grouped microcalcifications, or areas of architectural distortion are seen. The skin and vascularity are unremarkable. IMPRESSION: Stable mammographic appearance of the breasts. No evidence of malignancy is seen. A negative mammogram in the presence of a clinically suspicious palpable abnormality does not preclude the possibility of malignancy or alter the indications for biopsy. BI-RADS: Category 1: Negative RECOMMENDATION(S): 1: Routine screening mammogram BILATERAL in 1 year. [id number], [id number] 3341F, 7025F Dictating Physician: SHARA DORSEY MD Electronically Signed by: SHARA DORSEY MD Dic Date/Time: 11/21/22916 Sign date/Time: 11/21/22916 Procedure Note Shara Dorsey MD - 11/14/2023 [facility] Diagnostic Imaging Department [address] [place] [id number] Patient: ASHLEE YUNO.B./Age/Sex: 1960 - 61 - F Unit#: [id number] Location/Status: [facility] CLI Mnemonic/Ordering Site: [facility] Ordering Physician: FIDELINA MARQUEZ MD Candace Screening Digital - 11/21/22822 EXAM: [facility] Screening Digital EXAM DATE AND TIME: 11/21/2022 8:23 AM HISTORY: Screening. Maternal cousin had breast carcinoma. COMPARISON: 10/01/21, 09/30/20, 07/10/19 TECHNIQUE: CC and MLO views of both breasts were obtained using fullfield digital mammography. Bilateral digital breast tomosynthesis was performedin the MLO projection. Computer aided detection with [employer] 7.2-H [employer] 3D 3.1 was employed. TISSUE DENSITY: a. The breasts are almost entirely fatty. FINDINGS: No suspicious masses, grouped microcalcifications, or areas ofarchitectural distortion are seen. The skin and vascularity are unremarkable. IMPRESSION: Stable mammographic appearance of the breasts. No evidence of malignancyis seen. A negative mammogram in the presence of a clinically suspicious palpable abnormality does not preclude the possibility of malignancy or alter the indications for biopsy. BI-RADS: Category 1: Negative RECOMMENDATION(S): 1: Routine screening mammogram BILATERAL in 1 year. [id number], 14854 3341F, 7025F Dictating Physician: SHARA DORSEY MD Electronically Signed by: SHARA DORSEY MD Dic Date/Time: 11/21/22916 Sign date/Time: 11/21/22916 Fidelina Marquez MD IMG BI PROCEDURES Final Result * Hm Pap Smear (06/25/2021) HM Pap smear No interpretation , Abstracted Historical Provider HEALTH MAINTENANCE Final Result * (ABNORMAL) Lipid panel (08/01/2020) LDL/HDL Ratio 3 0 - 4 Triglycerides 109 0 - 150 mg/dL Cholesterol 204(A) 0 - 200 mg/dL HDL 82 >=40 mg/dL LDL Cholesterol 101(A) 0 - 100 mg/dL Blood Venous blood specimen / Unknown Historical Provider LAB BLOOD ORDERABLES Desirae l Result from Last 3 Months or Most Recently Relevant to Health Maintenance Insurance MEDICAID - [place] [facility] Care Teams Chip Mixing Machine Operator Relationship Specialty Start Date End Date Cady Jamison MD [address] [place] [id number] PCP - General Family Medicine 11/03/24
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
[2025-06-01 07:58] VITALS: BP 110/72; PULSE 67; O2SAT 95; BMI 34.9
== END 2025-06-01 09:06 | disposition home or self-care (01) ==
LOC: HO.HSMS 07:43
PROVIDERS: PCP Family Medicine; Visit Provider Psychiatry & Neurology Neurology
DX: G40.409 Other generalized epilepsy and epileptic syndromes, not intractable, without status epilepticus (principal); G43.909 Migraine, unspecified, not intractable, without status migrainosus; R42 Dizziness and giddiness; Q85.1 Tuberous sclerosis; S09.90XA Unspecified injury of head, initial encounter; M54.2 Cervicalgia
CPT/HCPCS: 99214; G2211

== ENCOUNTER → 2025-06-01 07:42 | Outpatient (BNVA) | payer MEDICAID, SELFPAY | PROVIDERS: PCP Family Medicine; Visit Provider Psychiatry & Neurology Neurology | DX: M54.2 Cervicalgia (principal); R42 Dizziness and giddiness; G40.409 Other generalized epilepsy and epileptic syndromes, not intractable, without status epilepticus; G43.909 Migraine, unspecified, not intractable, without status migrainosus; F41.9 Anxiety disorder, unspecified; Q85.1 Tuberous sclerosis; S09.90XA Unspecified injury of head, initial encounter; V48.2XXA Person on outside of car injured in noncollision transport accident in nontraffic accident, initial encounter; Y93.C2 Activity, hand held interactive electronic device; Y92.414 Local residential or business street as the place of occurrence of the external cause; Y93.I9 Activity, other involving external motion; Y99.9 Unspecified external cause status | CPT/HCPCS: 99212 ==